=== PATIENT | female | born 1990 | race Caucasian/White ===

== ENCOUNTER 2017-05-05 09:19 | Outpatient (CLI) | payer MEDICAID | END 2017-05-05 09:20 | disposition home or self-care (01) | LOC: DI 09:19 | PROVIDERS: ATTEND Family Medicine | DX: O90.3 Peripartum cardiomyopathy (principal); I51.9 Heart disease, unspecified | CPT/HCPCS: 93306 ==

== ENCOUNTER 2017-07-23 11:03 | Emergency (ER) | payer MEDICAID ==
[2017-07-23 11:29] LABS: RAPID STREP SCREEN REAGENT QC YELLOW (YELLOW)
--- NOTE | 2017-07-23 13:21 | ED Physician Documentation ---
PD HPI URI - Stated complaint Stated Complaint: SORE THROAT - Chief complaint Chief Complaint: Heent - History obtained from History obtained from: Patient - History of Present Illness Timing - onset: Yesterday Timing duration: Days (1) Timing details: Gradual onset, Still present Associated symptoms: Nasal congestion, Sore throat, Swollen nodes, Dry cough. 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 NUMERICAL CONTROL: Dilation and currettage - Present Medications Home Medications: Ambulatory Orders Medication Instructions Recorded Confirmed Ipratropium/Albuterol [Duoneb] 3 ml INH Q6H PRN #25 neb 01/06/14 03/09/16 Carvedilol [Coreg] 25 mg PO BID 12/23/15 03/09/16 Spironolactone 12.5 mg PO DAILY 12/23/15 03/09/16 Cephalexin [Keflex] 500 mg PO TID #21 capsule 07/23/17 Losartan [Cozaar] 50 mg PO DAILY 07/23/17 07/23/17 - Allergies Allergies/Adverse Reactions: Allergies Allergy/AdvReac Type Severity Reaction Status Date / Time No Known Drug Allergies Allergy Verified 07/23/17 11:13 - Social History Does the pt smoke?: No Smoking Status: Former smoker Does the pt drink ETOH?: No Does the pt have substance abuse?: No - Immunizations Immunizations are current?: Yes - POLST Patient has POLST: No POLST Status: Full Code PD ED PE NORMAL - Vitals Vital signs reviewed: Yes - General General: Alert and oriented X 3, Well developed/nourished - HEENT HEENT: Ears normal. No: Pharynx benign (minimal redness but no exudate nor sores. ) - Neck Neck: Supple, no meningeal sign, No adenopathy - Cardiac Cardiac: RRR, No murmur - Respiratory Respiratory: Clear bilaterally - Abdomen Abdomen: Soft, Non tender - Derm Derm: Normal color, Warm and dry, No rash Results - Vitals Vitals: Vital Signs - 24 hr 07/23/17 07/23/17 11:10 13:51 Temperature 36.8 C 36.7 C Heart Rate 97 88 Respiratory 18 18 Rate Blood Pressure 148/91 H 137/84 H O2 Saturation 97 98 Oxygen O2 Source Room air - Labs Labs: Microbiology 07/23/17 11:15 Group A Strep Throat Culture - Final Throat Beta Hemolytic Strep Group C Laboratory Tests 07/23/17 11:15 Group A Strep Rapid Negative PD MEDICAL DECISION MAKING - ED course Complexity details: considered differential, d/w patient Departure - Departure Disposition: Home, Self Care Clinical Impression: Pharyngitis Qualifiers: Pharyngitis/tonsillitis etiology: unspecified etiology Qualified Code(s): J02.9 - Acute pharyngitis, unspecified Condition: Stable Record reviewed to determine appropriate education?: Yes Instructions: ED Pharyngitis Viral Report Pending Follow-Up: Tracy Wallace MD [Primary Care Provider] - Prescriptions: Cephalexin [Keflex] 500 mg PO TID #21 capsule Comments: Your rapid strep test is negative right now and exam does not look strep at the moment. If the culture comes back positive or you develop more classic strep- like symptoms, then take the cephalexin as directed. For now Tylenol ibuprofen and drink lots of fluids and see if it improves being more likely allergy or viral. Forms: Activity restrictions Discharge Date/Time: 07/23/17 13:51
[2017-07-23] MEDS ORDERED: DEXAMETHASONE 10 MG/ML VIAL PO STA (13:35)
[2017-07-23] MEDS ORDERED: DEXAMETHASONE 10 MG/ML VIAL ONE (13:47)
[2017-07-23 13:52] VITALS: BP 137/84
== END 2017-07-23 13:51 | disposition home or self-care (01) ==
LOC: ED 11:03
DX: J02.9 Acute pharyngitis, unspecified (principal); Z87.891 Personal history of nicotine dependence
CPT/HCPCS: 87070; 87430; 99283

== ENCOUNTER 2017-11-19 09:50 | Outpatient (CLI) | payer MEDICAID | END 2017-11-19 09:51 | disposition home or self-care (01) | LOC: LAB.WCP 09:50 | PROVIDERS: ATTEND Family Medicine | DX: B37.3 Candidiasis of vulva and vagina (principal) | CPT/HCPCS: 87480; 87510; 87660 ==

== ENCOUNTER 2018-02-26 12:20 | Outpatient (CLI) | payer MEDICAID | END 2018-02-26 12:21 | disposition home or self-care (01) | LOC: LAB.WCP 12:20 | PROVIDERS: ATTEND Family Medicine | DX: N61.1 Abscess of the breast and nipple (principal) | CPT/HCPCS: 87070; 87181; 87205 ==

== ENCOUNTER 2018-03-07 10:14 | Emergency (ER) | payer MEDICAID ==
[2018-03-07 11:41] LABS: BASOPHILS # (AUTO) 0.1 10^3/uL (0.0-0.1); BASOPHILS % (AUTO) 1.2 %; EOSINOPHILS # (AUTO) 0.8 10^3/uL (0.0-0.7); EOSINOPHILS % (AUTO) 7.8 %; HGB - HEMOGLOBIN 12.1 g/dL (12.0-16.0); LYMPHOCYTES # (AUTO) 1.5 10^3/uL (1.5-3.5); LYMPHOCYTES % (AUTO) 15.1 %; MEAN CORPUSCULAR HEMOGLOBIN 25.6 pg (27.0-31.0); MEAN CORPUSCULAR HGB CONC 32.1 g/dL (32.0-36.0); MEAN CORPUSCULAR VOLUME 79.9 fL (81.0-99.0); MEAN PLATELET VOLUME 7.3 fL (7.9-10.8); MONOCYTES # (AUTO) 0.5 10^3/uL (0.0-1.0); MONOCYTES % (AUTO) 5.1 %; NEUTROPHILS % (AUTO) 70.8 %; PLT - PLATELET COUNT 315 10^3/uL (130-450); RED BLOOD COUNT 4.74 10^6/uL (4.20-5.40); RED CELL DISTRIBUTION WIDTH 15.3 % (12.0-15.0); WHITE BLOOD COUNT 9.9 x10^3/uL (4.8-10.8)
--- NOTE | 2018-03-07 11:54 | ED Physician Documentation ---
PD HPI DYSPNEA - Stated complaint Stated Complaint: SOA - Chief complaint Chief Complaint: Resp - History obtained from History obtained from: Patient - History of Present Illness Timing - onset: How many days ago (several) Timing - onset during: Light activity Timing - duration: Days Timing - details: Gradual onset, Still present, Waxing and waning Inciting event(s): URI. No: Out of meds Worsened by: Exertion, Coughing Associated symptoms: Cough, Wheezing, Chest pain / discomfort. No: Palpitations Similar symptoms before: Diagnosis (asthma with URIs in the past; usually no allergies to environmental.) Recently seen: Not recently seen Review of Systems Constitutional: reports: Myalgias Nose: reports: Rhinorrhea / runny nose, Congestion Throat: reports: Sore throat Cardiac: reports: Chest pain / pressure (with coughing). 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) Psych: Depression, Anxiety Musculoskeletal: None - Past Surgical History Past Surgical History: Yes /DRAGLINE OILER: Dilation and currettage - Present Medications Home Medications: Ambulatory Orders Medication Instructions Recorded Confirmed Ipratropium/Albuterol [Duoneb] 3 ml INH Q6H PRN #25 neb 01/06/14 03/09/16 Carvedilol [Coreg] 25 mg PO BID 12/23/15 03/09/16 Spironolactone 12.5 mg PO DAILY 12/23/15 03/09/16 Losartan [Cozaar] 50 mg PO DAILY 07/23/17 07/23/17 Albuterol Sulf [Ventolin Hfa 1 - 2 puffs INH Q4HR PRN #1 inhaler 03/07/18 Inhaler] Benzonatate [Tessalon] 100 mg PO TID PRN #25 capsule 03/07/18 Dexamethasone [Decadron] 4 mg PO DAILY #5 tablet 03/07/18 Sertraline HCl [Zoloft] 100 mg DAILY 03/07/18 03/07/18 buPROPion [Wellbutrin Sr] 150 mg BID 03/07/18 03/07/18 clonazePAM [KlonoPIN] 1 mg PRN 03/07/18 - Allergies Allergies/Adverse Reactions: Allergies Allergy/AdvReac Type Severity Reaction Status Date / Time No Known Drug Allergies Allergy Verified 07/23/17 11:13 - Social History Does the pt smoke?: No Smoking Status: Light tobacco smoker Does the pt drink ETOH?: No Does the pt have substance abuse?: Yes Substance Use and Type: Marijuana - Immunizations Immunizations are current?: Yes - POLST Patient has POLST: No POLST Status: Full Code PD ED PE NORMAL - Vitals Vital signs reviewed: Yes - General General: Alert and oriented X 3, No acute distress, Well developed/nourished - HEENT HEENT: Ears normal, Pharynx benign - Neck Neck: Supple, no meningeal sign, No adenopathy - Cardiac Cardiac: RRR, No murmur - Respiratory Respiratory: No respiratory distress. No: Clear bilaterally (wheezing diffusely ; without coarse sounds. ) - Abdomen Abdomen: Soft, Non tender - Back Back: No CVA TTP - Derm Derm: Normal color, Warm and dry - Extremities Extremities: No deformity, No tenderness to palpate Results - Vitals Vitals: Oxygen O2 Source Nasal cannula - EKG (time done) 10:23 Rate: Rate (enter#) (96) Rhythm: NSR [place]: Normal Intervals: Normal CA Ischemia: Normal ST segments. No: ST elevation c/w ischemia, ST depression Compare to prior EKG: Old EKG unavailable, Other (ECG one through nursing triage protocol) - Labs Labs: Laboratory Tests 03/07/18 03/07/18 03/07/18 11:26 11:26 11:26 WBC 9.9 RBC 4.74 Hgb 12.1 Hct 37.8 MCV 79.9 L MCH 25.6 L MCHC 32.1 RDW 15.3 H Plt Count 315 MPV 7.3 L Neut # (Auto) 7.0 H Lymph # (Auto) 1.5 [place] # (Auto) 0.5 Eos # (Auto) 0.8 H Baso # (Auto) 0.1 Absolute Nucleated RBC 0.01 Nucleated RBC % 0.1 Sodium 138 Potassium 4.6 Chloride 105 Carbon Dioxide 27 Anion Gap 6.0 BUN 11 Creatinine 0.6 Estimated GFR (MDRD) 120 Glucose 88 Calcium 9.2 Troponin I B-Natriuretic Peptide Serum HCG, Qual NEGATIVE 03/07/18 03/07/18 11:26 11:26 WBC RBC Hgb Hct MCV MCH MCHC RDW Plt Count MPV Neut # (Auto) Lymph # (Auto) [place] # (Auto) Eos # (Auto) Baso # (Auto) Absolute Nucleated RBC Nucleated RBC % Sodium Potassium Chloride Carbon Dioxide Anion Gap BUN Creatinine Estimated GFR (MDRD) Glucose Calcium Troponin I < 0.04 B-Natriuretic Peptide 22 Serum HCG, Qual - Rads (name of study) chest Radiology: Prelim report reviewed, EMP read contemporaneously (no infiltrates) PD MEDICAL DECISION MAKING - ED course Complexity details: re-evaluated patient (breathing better after neb treatment. ), considered differential (seems like URI versus allergies, with exac asthma. ) , d/w patient Departure - Departure Disposition: 01 Home, Self Care Clinical Impression: Dyspnea Qualifiers: Dyspnea type: shortness of breath Qualified Code(s): R06.02 - Shortness of breath Upper respiratory infection Qualifiers: URI type: unspecified URI Qualified Code(s): J06.9 - Acute upper respiratory infection, unspecified Exacerbation of asthma Qualifiers: Asthma severity: mild Asthma persistence: intermittent Qualified Code(s): J45.21 - Mild intermittent asthma with (acute) exacerbation Condition: Stable Record reviewed to determine appropriate education?: Yes Instructions: ED URI Viral W Wheezing Follow-Up: Tracy Wallace MD [Primary Care Provider] - Prescriptions: Albuterol Sulf [Ventolin Hfa Inhaler] 1 - 2 puffs INH Q4HR PRN #1 inhaler PRN Reason: Shortness Of Air/Wheezing Benzonatate [Tessalon] 100 mg PO TID PRN #25 capsule PRN Reason: Cough Dexamethasone [Decadron] 4 mg PO DAILY #5 tablet Comments: No signs of heart failure nor pneumonia. This sounds like a viral infection with wheezing. Probably exacerbating your asthma. Use your albuterol inhaler 2 puffs or 3 puffs at least 4 times a day and extra times if needed over the next week. Decadron steroid for the inflammation of the airways daily for the next 5 days. This should improve on your wheezing over the course of later today and to tonight. Tessalon if needed for cough. Continue your other usual medications. Discharge Date/Time: 03/07/18 14:12
[2018-03-07 12:03] LABS: CALCIUM 9.2 mg/dL (8.5-10.3); CREATININE 0.6 mg/dL (0.4-1.0); HCG,QUALITATIVE BLOOD NEGATIVE
[2018-03-07] MEDS ORDERED: ALBUTEROL NEB 2.5 MG/3 ML INH STA (12:12)
--- NOTE | 2018-03-07 13:19 | XRAY Report ---
EXAM: CHEST RADIOGRAPHY EXAM DATE: 03/07/2018 12:59 PM. CLINICAL HISTORY: Shortness of breath, history of congestive heart failure. COMPARISON: Chest x-ray 02/08/2013. TECHNIQUE: 2 views. FINDINGS: Lungs/Pleura: No focal opacities evident. No pleural effusion. No pneumothorax. Normal volumes. Mediastinum: Heart and mediastinal contours are unremarkable. Other: None. IMPRESSION: Normal 2-view chest radiography. [facility] Referring Provider Line: [phone] SITE ID: [id number]
--- NOTE | 2018-03-07 13:19 | XRAY Preliminary Report ---
Exam: XR CHEST 2 VIEW X-RAY IMPRESSION: Normal 2-view chest radiography. [facility] SITE ID: [id number]
[2018-03-07] MEDS ORDERED: BENZONATATE 100 MG CAPSULE PO STA (13:31)
[2018-03-07] MEDS ORDERED: DEXAMETHASONE 10 MG/ML VIAL PO STA (13:31)
[2018-03-07] MEDS ORDERED: IPRATROPIUM/ALBUTEROL 3 ML NEB INH STA (13:31)
[2018-03-07 14:11] VITALS: BP 137/81
== END 2018-03-07 14:12 | disposition home or self-care (01) ==
LOC: ED 10:14
DX: J45.21 Mild intermittent asthma with (acute) exacerbation (principal); J06.9 Acute upper respiratory infection, unspecified; I50.9 Heart failure, unspecified; F17.200 Nicotine dependence, unspecified, uncomplicated
CPT/HCPCS: 36415; 71046; 80048; 83880; 84484; 84703; 85025; 93005; 99283; A9270

== ENCOUNTER 2018-03-28 09:28 | Emergency (ER) | END 2018-03-28 12:44 | disposition home or self-care (01) ==

== ENCOUNTER 2018-04-06 09:50 | Outpatient (CLI) | payer MEDICAID | END 2018-04-06 09:51 | disposition home or self-care (01) | LOC: LAB.R 09:50 | PROVIDERS: ATTEND Family Medicine | DX: N61.1 Abscess of the breast and nipple (principal) | CPT/HCPCS: 81599; 87070; 87205 ==

== ENCOUNTER 2018-05-03 07:21 | Emergency (ER) | payer MEDICAID ==
[2018-05-03 07:46] VITALS: BP 121/72
--- NOTE | 2018-05-03 07:49 | ED Physician Documentation ---
History of Present Illness - Stated complaint Stated Complaint: DIFF BREATHING - Additonal information Additional information: hx from pt 27 f hx asthma and hx post cardiomyopathy with resultant CHF to ED with cough and soa she feels it is asthma triggered by URI no recent travel denies preg using her MRI every few minutes but it isnt helping her - this has been an issue in the past when she cannot inhale deeply enough to utilize MDI even with spacer - i prescribed her a nebulizer last visit because of this but she states her insurance company denied the neb she has also been taking tesalon s relief she does not have rescue rx for steroids Review of Systems Constitutional: denies: Fever, Chills Respiratory: reports: Dyspnea, Cough, Wheezing GI: denies: Vomiting, Diarrhea : denies: Now EGA (denies) Musculoskeletal: denies: Extremity swelling Neurologic: denies: Generalized weakness Endocrine: denies: Easy bruising / bleeding Immunocompromised: denies: Immunocompromised PD PAST MEDICAL HISTORY - Past Medical History Cardiovascular: Congestive heart failure, Other 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: 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) Psych: Depression, Anxiety Musculoskeletal: None - Past Surgical History Past Surgical History: Yes /WEB PRODUCTION ARTIST: Dilation and currettage - Present Medications Home Medications: Ambulatory Orders Medication Instructions Recorded Confirmed Carvedilol [Coreg] 25 mg PO BID 12/23/15 03/09/16 Spironolactone 12.5 mg PO DAILY 12/23/15 03/09/16 Losartan [Cozaar] 50 mg PO DAILY 07/23/17 07/23/17 Albuterol Sulf [Ventolin Hfa 1 - 2 puffs INH Q4HR PRN #1 inhaler 03/07/18 Inhaler] Benzonatate [Tessalon] 100 mg PO TID PRN #20 capsule 03/28/18 Albuterol Sulfate [Proair Hfa 2 puffs INH Q4H PRN #1 inhaler 05/03/18 Inhaler] Lisdexamfetamine Dimesylate 20 mg PO DAILY 05/03/18 05/03/18 [Vyvanse] predniSONE [Deltasone] 60 mg PO DAILY 5 Days tablet 05/03/18 - Allergies Allergies/Adverse Reactions: Allergies Allergy/AdvReac Type Severity Reaction Status Date / Time No Known Drug Allergies Allergy Verified 05/03/18 07:39 - Social History Does the pt smoke?: No Smoking Status: Never smoker Does the pt drink ETOH?: No Does the pt have substance abuse?: Yes - Immunizations Immunizations are current?: Yes - POLST Patient has POLST: No POLST Status: Full Code PD ED PE NORMAL - Vitals Vital signs reviewed: Yes - General General: Alert and oriented X 3 - HEENT HEENT: PERRL - Neck Neck: Supple, no meningeal sign - Cardiac Cardiac: RRR - Respiratory Respiratory: Other (tight insp exp wheeze) - Abdomen Abdomen: Soft, Non tender - Derm Derm: Normal color - Extremities Extremities: No edema, No calf tenderness / cord - Neuro Neuro: Alert and oriented X 3 - Psych Psych: Normal mood Results - Vitals Vitals: Vital Signs - 24 hr 05/03/18 05/03/18 07:42 08:13 Temperature 36.4 C L Heart Rate 83 91 Respiratory 20 16 Rate Blood Pressure 121/72 O2 Saturation 95 Oxygen O2 Source Room air - Rads (name of study) CXR Radiology: See rad report PD MEDICAL DECISION MAKING - ED course ED course: ordered decadron and triple neb and CXR I was suturing another pt and nruse reported pt needed to leave I could not stop mid procedure but said I would check on pt as soon as I was done After proceudre I went to see pt and she had eloped i did not get to reassess her per RT notes PF went from 220 to 320 with expected of 480 but pt was improved with dec wheezing and better aeration - she likely needed more nebs with that peak flow in case I will rx prednisone and an MDI refill and ask nurse to call in to pt pahrmacy have already tried to get pt a nebulizer but was denied by insurance - Sepsis Event Vital Signs: Vital Signs - 24 hr 05/03/18 05/03/18 07:42 08:13 Temperature 36.4 C L Heart Rate 83 91 Respiratory 20 16 Rate Blood Pressure 121/72 O2 Saturation 95 Oxygen O2 Source Room air Departure - Departure Disposition: ED Elope Clinical Impression: Exacerbation of asthma Qualifiers: Asthma severity: unspecified severity Asthma persistence: intermittent Qualified Code(s): J45.21 - Mild intermittent asthma with (acute) exacerbation Condition: Fair Instructions: ED Inhaler Use, Asthma Dc Follow-Up: Tracy Wallace MD [Primary Care Provider] - Prescriptions: Albuterol Sulfate [Proair Hfa Inhaler] 2 puffs INH Q4H PRN #1 inhaler PRN Reason: Shortness Of Air/Wheezing predniSONE [Deltasone] 60 mg PO DAILY 5 Days tablet Comments: You left before I could recheck you. According to the resp therapist notes you peak flow was still quite low and you probably needed more breathing treatments before leaving I have asked the ER staff to fax prescriptions for steroids and a new inhaler to your pharmacy Please see your PMD as soon as possible Return if worse
[2018-05-03] MEDS ORDERED: DEXAMETHASONE 10 MG/ML VIAL PO STA (07:50)
[2018-05-03] MEDS ORDERED: ALBUTEROL NEB 2.5 MG/3 ML INH STA (07:50)
[2018-05-03] MEDS ORDERED: IPRATROPIUM 0.2 MG/ML NEB INH STA (07:51)
[2018-05-03] MEDS ORDERED: CHERRY SYRUP 10 ML UDC PO ONE (08:06)
--- NOTE | 2018-05-03 08:34 | XRAY Report ---
Procedure Date: 05/03/2018 Accession Number: [id number] / [id number] Procedure: XR - Chest 2 View X-Ray CPT Code: 16863 FULL RESULT: EXAM: CHEST RADIOGRAPHY EXAM DATE: 05/03/2018 08:12 AM. CLINICAL HISTORY: Cough soa hx asthma and chf. COMPARISON: 03/28/2018. TECHNIQUE: 2 views. FINDINGS: Lungs/Pleura: Peribronchial thickening. Bibasilar atelectasis. No focal opacities evident. No pleural effusion. No pneumothorax. Normal volumes. Mediastinum: Heart and mediastinal contours are unremarkable. Other: None. IMPRESSION: Findings consistent with history of asthma. No focal infiltrate. [facility]
== END 2018-05-03 09:02 | disposition left against medical advice (07) ==
LOC: ED 07:21
DX: J45.21 Mild intermittent asthma with (acute) exacerbation (principal); J44.9 Chronic obstructive pulmonary disease, unspecified
CPT/HCPCS: 71046; 94150; 94640; 99282; 99284; A9270

== ENCOUNTER 2018-06-28 07:39 | Emergency (ER) | payer MEDICAID ==
[2018-06-28 07:51] VITALS: BP 157/87
--- NOTE | 2018-06-28 07:54 | ED Physician Documentation ---
PD HPI FEMALE - Stated complaint Stated Complaint: FEMALE - Chief complaint Chief Complaint: UTI - History obtained from History obtained from: Patient - History of Present Illness Timing - onset: How many weeks ago (1) Timing - duration: Weeks (1) Timing - details: Gradual onset, Now resolved, Waxing and waning Associated symptoms: Dysuria, Urinary frequency. No: Fever Contributing factors: No: Similar symptoms before: Diagnosis (UTI) Recently seen: Not recently seen - Additional information Additional information: 27-year-old female is developed urinary urgency frequency and dysuria with small amounts of urine produced and some pain to the bladder area when she attempts to bear down. She denies any fever or chills she does have periodic nausea and she denies any specific back pain. She does have a history of foul smelling discharge and vaginal irritation and has been diagnosed with BV. She states she has had more than one course of topical metronidiazole without relief of her sym ptoms. She admits the symptoms are similar and have not resolved in 6 months. Review of Systems Constitutional: denies: Fever, Chills, Myalgias Eyes: denies: Decreased vision Nose: denies: Congestion Throat: denies: Sore throat Respiratory: denies: Cough GI: reports: Nausea. 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) Psych: Depression, Anxiety Musculoskeletal: None - Past Surgical History Past Surgical History: Yes /MACHINE STAPLER: Dilation and currettage - Present Medications Home Medications: Ambulatory Orders Medication Instructions Recorded Confirmed Carvedilol [Coreg] 25 mg PO BID 12/23/15 03/09/16 Spironolactone 25 mg PO DAILY 12/23/15 03/09/16 Losartan [Cozaar] 50 mg PO DAILY 07/23/17 07/23/17 Albuterol Sulf [Ventolin Hfa 1 - 2 puffs INH Q4HR PRN #1 inhaler 03/07/18 Inhaler] Albuterol Sulfate [Proair Hfa 2 puffs INH Q4H PRN #1 inhaler 05/03/18 Inhaler] Aspirin [Adult Aspirin] DAILY 06/28/18 Clindamycin HCl [Clindamycin 300MG 300 mg PO BID #14 capsule 06/28/18 CAP] Methylphenidate HCl TID 06/28/18 Venlafaxine ER [Effexor ER] DAILY 06/28/18 - Allergies Allergies/Adverse Reactions: Allergies Allergy/AdvReac Type Severity Reaction Status Date / Time No Known Drug Allergies Allergy Verified 05/03/18 07:39 - Social History Does the pt smoke?: No Smoking Status: Never smoker Does the pt drink ETOH?: No Does the pt have substance abuse?: Yes - Immunizations Immunizations are current?: Yes - POLST Patient has POLST: No POLST Status: Full Code PD ED PE NORMAL - Vitals Vital signs reviewed: Yes (tahcy and hypertensive ) - General General: Alert and oriented X 3, No acute distress, Well developed/nourished - HEENT HEENT: Atraumatic, PERRL, EOMI - Respiratory Respiratory: No respiratory distress - Back Back: No CVA TTP, No spinal TTP - Derm Derm: Normal color, Warm and dry, No rash - Extremities Extremities: No deformity, No edema - Neuro Neuro: Alert and oriented X 3, eligibility technician 2-12 intact, No motor deficit, No sensory deficit, Normal speech Eye Opening: Spontaneous Motor: Obeys Commands Verbal: Oriented GCS Score: 15 - Psych Psych: Normal mood, Normal affect Results - Vitals Vitals: Vital Signs - 24 hr 06/28/18 07:49 Temperature 36.4 C L Heart Rate 101 H Respiratory 16 Rate Blood Pressure 157/87 H O2 Saturation 100 Oxygen O2 Source Room air - Labs Labs: Laboratory Tests 06/28/18 07:45 Urine Color YELLOW Urine Clarity CLEAR Urine pH 6.0 Ur Specific [place] 1.020 Urine Protein NEGATIVE Urine Glucose (UA) NEGATIVE Urine Ketones NEGATIVE Urine Occult Blood NEGATIVE Urine Nitrite NEGATIVE Urine Bilirubin NEGATIVE Urine Urobilinogen 0.2 (NORMAL) Ur Leukocyte Esterase NEGATIVE Ur Microscopic Review NOT INDICATED Urine Culture Comments NOT INDICATED Urine HCG, Qual NEGATIVE PD MEDICAL DECISION MAKING - ED course Complexity details: considered differential, d/w patient ED course: 27-year-old female with a history of bacterial vaginosis has had no improvement in her symptoms over the last 6 months with treatment with metronidazole gel. She is developed urinary symptoms as well that she believes are part of her bacterial vaginosis. Urinalysis is unremarkable. - Sepsis Event Vital Signs: Vital Signs - 24 hr 06/28/18 07:49 Temperature 36.4 C L Heart Rate 101 H Respiratory 16 Rate Blood Pressure 157/87 H O2 Saturation 100 Oxygen O2 Source Room air Departure - Departure Disposition: 01 Home, Self Care Clinical Impression: Bacterial vaginosis Condition: Stable Instructions: ED Vaginosis Bacterial Follow-Up: Tracy Wallace MD [Primary Care Provider] - Prescriptions: Clindamycin HCl [Clindamycin 300MG CAP] 300 mg PO BID #14 capsule
[2018-06-28 07:57] LABS: BILIRUBIN,URINE NEGATIVE (NEGATIVE); GLUCOSE, URINE (UA) NEGATIVE (NEGATIVE); KETONES,URINE (UA) NEGATIVE (NEGATIVE); LEUKOCYTE ESTERASE, URINE NEGATIVE (NEGATIVE); NITRITE,URINE NEGATIVE (NEGATIVE); OCCULT BLOOD,URINE NEGATIVE (NEGATIVE); PROTEIN,URINE NEGATIVE (NEGATIVE); UROBILINOGEN,URINE 0.2 (NORMAL) E.U./dL (NORMAL)
[2018-06-28 08:12] LABS: CLARITY,URINE CLEAR (CLEAR); HCG UR QUAL NEGATIVE
== END 2018-06-28 08:25 | disposition home or self-care (01) ==
LOC: ED 07:39
DX: N76.0 Acute vaginitis (principal)
CPT/HCPCS: 81001; 81003; 81025; 87086; 99283

== ENCOUNTER 2018-06-29 12:16 | Outpatient (CLI) | payer MEDICAID ==
[2018-06-29 19:10] LABS: HGB - HEMOGLOBIN 12.4 g/dL (12.0-16.0); MEAN CORPUSCULAR HEMOGLOBIN 26.5 pg (27.0-31.0); MEAN CORPUSCULAR HGB CONC 33.3 g/dL (32.0-36.0); MEAN CORPUSCULAR VOLUME 79.7 fL (81.0-99.0); MEAN PLATELET VOLUME 8.4 fL (7.9-10.8); RED BLOOD COUNT 4.69 10^6/uL (4.20-5.40); RED CELL DISTRIBUTION WIDTH 16.3 % (12.0-15.0); WHITE BLOOD COUNT 8.8 x10^3/uL (4.8-10.8)
== END 2018-06-29 12:17 | disposition home or self-care (01) ==
LOC: LAB.WCP 12:16
PROVIDERS: ATTEND Nurse Practitioner
DX: N92.0 Excessive and frequent menstruation with regular cycle (principal)
CPT/HCPCS: 85027

== ENCOUNTER 2018-07-01 11:20 | Outpatient (CLI) | payer MEDICAID ==
[2018-07-01 19:18] LABS: % IRON SATURATION 7 % (20-50); IRON 31 ug/dL (28-170); TOTAL IRON BINDING CAPACITY 421 ug/dL (250-450); TRANSFERRIN 301 mg/dL (192-382)
[2018-07-02 13:31] LABS: HIV AG/AB 4TH GEN NON-REACTIVE (NON-REACTIVE)
[2018-07-02 13:59] LABS: HEPATITIS C ANTIBODY NON-REACTIVE (NON-REACTIVE)
[2018-07-03 12:30] LABS: HSV 1 IGG TYPE SPECIFIC AB 7.74 index; HSV 2 IGG TYPE SPECIFIC AB <0.90 index
== END 2018-07-01 11:21 | disposition home or self-care (01) ==
LOC: LAB.WCP 11:20
PROVIDERS: ATTEND Family Medicine
DX: G25.81 Restless legs syndrome (principal); N92.0 Excessive and frequent menstruation with regular cycle; Z11.3 Encounter for screening for infections with a predominantly sexual mode of transmission
CPT/HCPCS: 36415; 81599; 82728; 83540; 84466; 86592; 86695; 86696; 86803; 87389; 87491; 87591

== ENCOUNTER 2018-07-22 17:25 | Emergency (ER) | payer MEDICAID ==
--- NOTE | 2018-07-22 19:37 | ED Physician Documentation ---
History of Present Illness - Stated complaint Stated Complaint: SOA/LT EYE SWELL - Chief complaint Chief Complaint: General - History obtained from History obtained from: Patient - History of Present Illness Timing: How many days ago (3) Pain level max: 3 Pain level now: 3 - Additonal information Additional information: cough, congestion, wheezing, L eye drainage and redness today. Better with rest and albuterol. 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) Psych: Depression, Anxiety Musculoskeletal: None - Past Surgical History Past Surgical History: Yes /MAJOR GIFTS OFFICER: Dilation and currettage - Present Medications Home Medications: Ambulatory Orders Medication Instructions Recorded Confirmed Carvedilol [Coreg] 25 mg PO BID 12/23/15 03/09/16 Spironolactone 25 mg PO DAILY 12/23/15 03/09/16 Losartan [Cozaar] 50 mg PO DAILY 07/23/17 07/23/17 Albuterol Sulf [Ventolin Hfa 1 - 2 puffs INH Q4HR PRN #1 inhaler 03/07/18 Inhaler] Albuterol Sulfate [Proair Hfa 2 puffs INH Q4H PRN #1 inhaler 05/03/18 Inhaler] Methylphenidate HCl TID 06/28/18 Venlafaxine ER [Effexor ER] DAILY 06/28/18 Polymyxin B/Trimeth Ophth Drop 1 drops LEFTEYE Q3H 7 Days #1 07/22/18 [Polytrim Ophth Drops] bottle - Allergies Allergies/Adverse Reactions: Allergies Allergy/AdvReac Type Severity Reaction Status Date / Time No Known Drug Allergies Allergy Verified 07/22/18 17:38 - Social History Does the pt smoke?: No Smoking Status: Never smoker Does the pt drink ETOH?: No Does the pt have substance abuse?: Yes - Immunizations Immunizations are current?: Yes Immunizations: TDAP >10years/unknown - POLST Patient has POLST: No POLST Status: Full Code PD ED PE NORMAL - Vitals Vital signs reviewed: Yes - General General: Alert and oriented X 3, No acute distress - HEENT HEENT: Ears normal, Moist mucous membranes, Pharynx benign, Other (OD normal. OS is Conjunctival injection with yellow drainage) - Neck Neck: Supple, no meningeal sign - Cardiac Cardiac: RRR - Respiratory Respiratory: No respiratory distress, Other (Diffuse wheezing bilaterally) - Abdomen Abdomen: Soft, Non tender, Non distended - Derm Derm: Warm and dry - Neuro Neuro: Alert and oriented X 3 - Psych Psych: Normal mood, Normal affect Results - Vitals Vitals: Vital Signs - 24 hr 07/22/18 07/22/18 17:36 19:45 Temperature 36.7 C 36.7 C Heart Rate 91 100 Respiratory 20 20 Rate Blood Pressure 147/72 H 138/96 H O2 Saturation 97 97 Oxygen O2 Source Room air PD MEDICAL DECISION MAKING - ED course Complexity details: reviewed results, re-evaluated patient, considered differential, d/w patient ED course: Patient is a 27-year-old female who presents to the emergency department with what appears to be a viral upper respiratory infection. She has wheezing bilaterally. She is well-appearing, nontoxic. Afebrile. She does have a left eye conjunctivitis which appears bacterial. Will place her on Polytrim ophthalmic for this. Will continue supportive care for her wheezing. No evidence of pneumonia. Patient counseled regarding signs and symptoms for which I believe and urgent re-evaluation would be necessary. Patient with good understanding of and agreement to plan and is comfortable going home at this time This document was made in part using voice recognition software. While efforts are made to proofread this document, sound alike and grammatical errors may occur. Patient declines a breathing treatment here Departure - Departure Disposition: 01 Home, Self Care Clinical Impression: Bacterial conjunctivitis of left eye, Viral URI Condition: Good Instructions: ED Conjunctivitis Bacterial, ED URI Viral W Wheezing Follow-Up: Tracy Wallace MD [Primary Care Provider] - Within 1 week Prescriptions: Polymyxin B/Trimeth Ophth Drop [Polytrim Ophth Drops] 1 drops LEFTEYE Q3H 7 Days #1 bottle Comments: Return if you worsen. Use the eye drops as prescribed. Discharge Date/Time: 07/22/18 19:46
[2018-07-22 19:46] VITALS: BP 138/96
== END 2018-07-22 19:46 | disposition home or self-care (01) ==
LOC: ED 17:25
DX: J06.9 Acute upper respiratory infection, unspecified (principal); H10.89 Other conjunctivitis; I50.9 Heart failure, unspecified; J45.909 Unspecified asthma, uncomplicated
CPT/HCPCS: 99283

== ENCOUNTER 2018-07-27 15:00 | Emergency (ER) | payer MEDICAID ==
[2018-07-27] MEDS ORDERED: LEVALBUTEROL 1.25 MG/3 ML NEB INH STA (15:14)
[2018-07-27] MEDS ORDERED: predniSONE 20 MG TABLET PO STA (15:14)
--- NOTE | 2018-07-27 15:18 | ED Physician Documentation ---
PD HPI DYSPNEA - Stated complaint Stated Complaint: SOA - Chief complaint Chief Complaint: Resp - History obtained from History obtained from: Patient - History of Present Illness Timing - onset: Other (27-year-old woman with recurrent asthma triggered by viral issues presents with several days worth of increased shortness of breath and increased nebulizer use and requesting steroids. Cough is nonproductive and she denies pedal edema or chest pain. 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) Psych: Depression, Anxiety Musculoskeletal: None - Past Surgical History Past Surgical History: Yes /DEPARTMENT HELPER: Dilation and currettage - Present Medications Home Medications: Ambulatory Orders Medication Instructions Recorded Confirmed Carvedilol [Coreg] 25 mg PO BID 12/23/15 07/27/18 Spironolactone 25 mg PO DAILY 12/23/15 07/27/18 Losartan [Cozaar] 50 mg PO DAILY 07/23/17 07/27/18 Albuterol Sulf [Ventolin Hfa 1 - 2 puffs INH Q4HR PRN #1 inhaler 03/07/18 07/27/18 Inhaler] Albuterol Sulfate [Proair Hfa 2 puffs INH Q4H PRN #1 inhaler 05/03/18 07/27/18 Inhaler] Methylphenidate HCl 10 mg PO DAILY 06/28/18 07/27/18 Venlafaxine ER [Effexor ER] 37.5 mg PO DAILY 06/28/18 Polymyxin B/Trimeth Ophth Drop 1 drops LEFTEYE Q3H 7 Days #1 07/22/18 07/27/18 [Polytrim Ophth Drops] bottle Albuterol Sulf [Ventolin Hfa 1 - 2 puffs INH Q4HR PRN #1 inhaler 07/27/18 Inhaler] Benzonatate [Tessalon Perle] 100 - 200 mg PO TID PRN #30 capsule 07/27/18 Levalbuterol HCl [Xopenex] 1.25 mg IH Q4H PRN #1 kit 10/23/18 predniSONE [Deltasone] 20 mg PO [id number] #21 tab 07/27/18 - Allergies Allergies/Adverse Reactions: Allergies Allergy/AdvReac Type Severity Reaction Status Date / Time No Known Drug Allergies Allergy Verified 07/27/18 15:05 - Social History Does the pt smoke?: No Smoking Status: Never smoker Does the pt drink ETOH?: No Does the pt have substance abuse?: Yes - Immunizations Immunizations are current?: Yes Immunizations: TDAP >10years/unknown - POLST Patient has POLST: No POLST Status: Full Code PD ED PE NORMAL - Vitals Vital signs reviewed: Yes - General General: Alert and oriented X 3, No acute distress - HEENT HEENT: Pharynx benign - Neck Neck: Supple, no meningeal sign, No bony TTP - Cardiac Cardiac: RRR, No murmur - Respiratory Respiratory: No respiratory distress, Other (Expiratory wheezes throughout with good air motion and no labored breathing, speaking in full sentences.) - Extremities Extremities: No edema, No calf tenderness / cord - Neuro Neuro: Alert and oriented X 3, Normal speech Results - Vitals Vitals: Vital Signs - 24 hr 07/27/18 15:02 Temperature 36.3 C L Heart Rate 93 Respiratory 20 Rate Blood Pressure 136/91 H O2 Saturation 98 Oxygen O2 Source Room air PD MEDICAL DECISION MAKING - ED course ED course: She is taking DuoNeb at home but thinks Xopenex works better. Departure - Departure Disposition: 01 Home, Self Care Clinical Impression: Exacerbation of asthma Qualifiers: Asthma severity: moderate Asthma persistence: persistent Qualified Code(s): J45.41 - Moderate persistent asthma with (acute) exacerbation Condition: Good Record reviewed to determine appropriate education?: Yes Instructions: Asthma Dc Prescriptions: Albuterol Sulf [Ventolin Hfa Inhaler] 1 - 2 puffs INH Q4HR PRN #1 inhaler PRN Reason: Shortness Of Air/Wheezing Benzonatate [Tessalon Perle] 100 - 200 mg PO TID PRN #30 capsule PRN Reason: Cough Levalbuterol HCl [Xopenex] 1.25 mg IH Q4H PRN #1 kit PRN Reason: Wheezing predniSONE [Deltasone] 20 mg PO [id number] #21 tab Comments: Call your doctor to arrange a follow-up appointment, make the next available appointment. In the interim, return anytime if worse or if new symptoms develop. Your blood pressure was elevated today on check into the emergency department. This does not mean that you have hypertension, it is a common phenomenon to come to the emergency department and have elevated blood pressure. I recommend that you see your primary care physician within the week to have it rechecked when you are feeling better.
[2018-07-27 15:56] VITALS: BP 139/83
== END 2018-07-27 15:55 | disposition home or self-care (01) ==
LOC: ED 15:00
DX: J45.41 Moderate persistent asthma with (acute) exacerbation (principal); R03.0 Elevated blood-pressure reading, without diagnosis of hypertension
CPT/HCPCS: 94640; 99283; J7512

== ENCOUNTER 2018-08-01 10:49 | Emergency (ER) | payer MEDICAID ==
[2018-08-01 10:58] VITALS: BP 145/80
--- NOTE | 2018-08-01 11:28 | ED Physician Documentation ---
PD HPI HEENT - Stated complaint Stated Complaint: RT SIDE FACIAL PX/MIGRAINE/RT EAR PX - Chief complaint Chief Complaint: Resp - History obtained from History obtained from: Patient - History of Present Illness Timing - onset: How many weeks ago (2) Timing - duration: Weeks (2) Timing - details: Gradual onset, Still present, Waxing and waning Location: Right ear, Sinuses, Throat Improves: Medication Worsens: Swalllowing, Position Associated symptoms: Congestion, Rhinorrhea, Facial swelling, Headache, Cough Similar symptoms before: Diagnosis (sinusitis bronchitis) Recently seen: Emergency Dept - Additional information Additional information: 27-year-old female is been sick with 3 weeks for the cough and congestion. She has been into see us here in the emergency department with conjunctivitis last week and this improved with the drops she went back into see her primary care doctor and was placed on some prednisone and her breathing has improved and she is used her inhaler last. Over the last 2 days she is developed a significant headache on the right side she has persistent cough and swelling in the right side of her face. Review of Systems Constitutional: reports: Fatigue. 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: Dilation and currettage - Present Medications Home Medications: Ambulatory Orders Medication Instructions Recorded Confirmed Carvedilol [Coreg] 25 mg PO BID 12/23/15 07/27/18 Spironolactone 25 mg PO DAILY 12/23/15 07/27/18 Losartan [Cozaar] 50 mg PO DAILY 07/23/17 07/27/18 Albuterol Sulfate [Proair Hfa 2 puffs INH Q4H PRN #1 inhaler 05/03/18 07/27/18 Inhaler] Methylphenidate HCl 10 mg PO DAILY 06/28/18 07/27/18 Venlafaxine ER [Effexor ER] 37.5 mg PO DAILY 06/28/18 Benzonatate [Tessalon Perle] 100 - 200 mg PO TID PRN #30 capsule 07/27/18 predniSONE [Deltasone] 20 mg PO [id number] #21 tab 07/27/18 Amox/Clav 875/125 [Augmentin] 1 each PO Q12H #20 tablet 08/01/18 - Allergies Allergies/Adverse Reactions: Allergies Allergy/AdvReac Type Severity Reaction Status Date / Time No Known Drug Allergies Allergy Verified 08/01/18 10:58 - Social History Does the pt smoke?: No Smoking Status: Never smoker Does the pt drink ETOH?: No Does the pt have substance abuse?: Yes - Immunizations Immunizations are current?: Yes Immunizations: TDAP >10years/unknown - POLST Patient has POLST: No POLST Status: Full Code PD ED PE NORMAL - Vitals Vital signs reviewed: Yes (hypertensive mild ) - General General: Alert and oriented X 3, No acute distress, Well developed/nourished - HEENT HEENT: Atraumatic, PERRL, EOMI, Other (The right TM is retracted and not inflamed the left is inflamed with indistinct landmarks. Pharynx is with 1+ c ryptic tonsils with exudate on the right. ) - Cardiac Cardiac: RRR, No murmur - Respiratory Respiratory: No respiratory distress, Clear bilaterally - Abdomen Abdomen: Soft, Non tender - Back Back: No CVA TTP, No spinal TTP - Derm Derm: Normal color, Warm and dry, No rash - Extremities Extremities: No deformity, No edema - Neuro Neuro: Alert and oriented X 3, resident athletic trainer 2-12 intact, No motor deficit, No sensory deficit, Normal speech Eye Opening: Spontaneous Motor: Obeys Commands Verbal: Oriented GCS Score: 15 - Psych Psych: Normal mood, Normal affect Results - Vitals Vitals: Vital Signs - 24 hr 08/01/18 10:56 Temperature 37 C Heart Rate 86 Respiratory 20 Rate Blood Pressure 145/80 H O2 Saturation 99 Oxygen O2 Source Room air PD MEDICAL DECISION MAKING - ED course Complexity details: reviewed old records, considered differential, d/w patient ED course: 27-year-old female with a recent URI has otitis on exam and appears to have some eustachian tube dysfunction on the right side. Most of her symptoms are somewhat centered on the right side. We will place her on some Augmentin. Departure - Departure Disposition: 01 Home, Self Care Clinical Impression: Otitis media Qualifiers: Otitis media type: suppurative Chronicity: acute Laterality: bilateral Recurrence: not specified as recurrent Spontaneous tympanic membrane rupture: without spontaneous rupture Qualified Code(s): H66.003 - Acute suppurative otitis media without spontaneous rupture of ear drum, bilateral Condition: Stable Instructions: ED Otitis Media Acute Adult Follow-Up: Tracy Wallace MD [Primary Care Provider] - Prescriptions: Amox/Clav 875/125 [Augmentin] 1 each PO Q12H #20 tablet
== END 2018-08-01 11:36 | disposition home or self-care (01) ==
LOC: ED 10:49
DX: H66.003 Acute suppurative otitis media without spontaneous rupture of ear drum, bilateral (principal); H69.81 Other specified disorders of Eustachian tube, right ear; I50.9 Heart failure, unspecified
CPT/HCPCS: 99283